=== PATIENT | female | born 1975 | race Native Hawaiian/Other Pacific Islander ===

== ENCOUNTER 2017-02-20 23:59 | Emergency (ER) | payer OTHER ==
[~2017-02-20] VITALS: Ht 162.6 cm; Wt 54.5 kg
[2017-02-21 00:36] VITALS: BP 145/89
[2017-02-21] MEDS ORDERED: IRON65TA PO (00:48)
[2017-02-21] MEDS ORDERED: LIDOCAINE 1% SDV INJ 30 ML VIAL SC SCH (01:30)
[2017-02-21] MEDS ORDERED: LIDOCAINE 1% MDV 20ML VIAL SC ONE (01:30)
[2017-02-21] MEDS ORDERED: LIDOCAINE 1% MDV 20ML VIAL As Ordered ONE (01:34)
== END 2017-02-21 02:40 | disposition home or self-care (01) ==
LOC: M ED 23:59
DX: T16.1XXA Foreign body in right ear, initial encounter (principal); Y92.89 Other specified places as the place of occurrence of the external cause; Y93.89 Activity, other specified; Y99.9 Unspecified external cause status